=== PATIENT | male | born 1965 | race Caucasian/White ===

== ENCOUNTER 2016-05-29 18:34 | Emergency (ER) | payer MEDICARE, MEDICAID ==
[~2016-05-29] VITALS: Ht 185.4 cm; Wt 81.6 kg
[2016-05-29] MEDS ORDERED: CEPHALEXIN500 MG ORAL (19:42)
[2016-05-29] MEDS ORDERED: PERMETHRIN60 GM TOPIC (19:42)
[2016-05-29] MEDS ORDERED: BACTRIM DS TAB1 EAC1 ORAL (19:42)
[2016-05-29 19:51] VITALS: BP 135/89
[2016-05-29 19:52] VITALS: BP 135/89
--- NOTE | 2016-05-29 22:13 | Emergency Room Report ---
History of Present Illness General Chief Complaint: Medical Clearance Source: Patient Present Illness HPI The pt is a 50 yo M presenting in custody for medical clearance. The pt state that he has bed bug bites and an infection to the R arm. The pt admits to injecting drugs into the R arm. Pt noticed redness to the R arm today. Pt states that he has many lesions of the arms and legs that resemble bed bugs. These lesions are itchy. The pt denies any pain and denies F, chills, CP, SOB, numbness/tingling Allergies: Coded Allergies: No Known Allergies (Unverified , 05/29/16) Patient History Past Medical History: see triage record Pertinent Family History: none Social History: Reports: drug use Reviewed Nursing Documentation: PMH: Agreed, PSxH: Agreed Nursing Documentation-PMH Past Medical History: No History, Except For Hx Hypertension: Yes Review of Systems All Other Systems: negative except mentioned in HPI Physical Exam Vital Signs Date Time Temp Pulse Resp B/P Pulse Ox O2 Delivery O2 Flow Rate FiO2 05/29/16 19:24 97.2 100 16 129/93 99 Room Air Sp02 EP Interpretation: reviewed, normal General Appearance: no apparent distress, alert, GCS 15, non-toxic Head: normocephalic, atraumatic Eyes: bilateral eye PERRL, bilateral eye normal inspection ENT: hearing grossly normal, normal pharynx, no angioedema, normal voice Respiratory: chest non-tender, lungs clear, normal breath sounds, speaking full sentences Cardiovascular #1: regular rate, rhythm, no edema Musculoskeletal: back normal, gait/station normal, normal range of motion Neurologic: alert, oriented x3, responsive, motor strength/tone normal, sensory intact, speech normal Psychiatric: judgement/insight normal, memory normal, mood/affect normal, no suicidal/homicidal ideation Skin: well hydrated, normal turgor, other - There is a 3cm indurated abscess distal to R antecubital fossa Lymphatic: no adenopathy Medical Decision Making PA Attestation Dr. Amezquita is my supervising physician. Patient management was discussed with my supervising physician Diagnostic Impression: Primary Impression: Scabies Additional Impression: Abscess ER Course The pt is a 50 yo M presenting in custody for medical clearance for possible R arm infection and scabies Ddx considered include but not limited to insect bite, contact dermatitis, abscess, eczema, cellulitis PE: vitals WNL. There are multiple burrowing lesions in the web spaces of hands and of arms. There is a 3cm indurated abscess distal to R antecubital fossa. Hot and tender. No opening. No fluctuance. otherwise exam is unremarkable. [facility] for keflex, bactrim, and permethrin. Medically cleared. Last Vital Signs Date Time Temp Pulse Resp B/P Pulse Ox O2 Delivery O2 Flow Rate FiO2 05/29/16 19:52 97.1 98 15 135/89 99 Room Air Status: improved Disposition: D/C TO LAW ENF[employer]CEMENT IN CUST Condition: Improved Scripts Trimethoprim/Sulfamethoxazole 160/800* (BACTRIM DS TABLET*) 1 Each Tablet 1 TAB ORAL TWICE A DAY, #14 TAB Prov: TO ANTON 05/29/16 Cephalexin* (KEFLEX*) 500 Mg Capsule 500 MG ORAL EVERY 6 HOURS, #28 CAP Prov: TO ANTON 05/29/16 Permethrin* (ELIMITE*) 60 Gm Cream..g. 1 APPLIC TOPIC ONCE, #60 GM 0 Refills Apply cream from head to toe; leave on for 8-14 hours before washing off with water; may reapply in 1 week if live mites appear. Prov: TO ANTON 05/29/16 Referrals: NOT CHOSEN IPA/MD,REFERRING (PCP) Departure Forms: Snf Clearance Patient Instructions: Abscess, Pruritus Additional Instructions: I discussed my findings with the patient. All questions and concerns have been answered. Treatment and medication compliance have been addressed. I advised the patient that they need to follow up with PMD in 3-5 days. Return to ED if symptoms worsen, new symptoms arise, or if needed for any reason. Patient verbalized understanding of discharge instructions. TO ANTON May 29, 2016 22:13
== END 2016-05-29 19:53 | disposition home or self-care (01) ==
LOC: EMR 19:30
DX: B86 Scabies (principal); L02.413 Cutaneous abscess of right upper limb; I10 Essential (primary) hypertension
CPT/HCPCS: 99284

== ENCOUNTER 2017-05-02 16:11 | Emergency (ER) | payer MEDICARE, MEDICAID ==
[~2017-05-02] VITALS: Ht 175.3 cm; Wt 77.1 kg
[~2017-05-02 16:11] MED LIST: BACTRIM DS TAB1 EAC1 ORAL; CEPHALEXIN500 MG ORAL; PERMETHRIN60 GM TOPIC
--- NOTE | 2017-05-02 16:22 | Emergency Room Report ---
History of Present Illness General Chief Complaint: Medical Clearance Source: Patient Present Illness HPI 51-year-old male presents to the emergency department for medical clearance for incarceration. Patient has history of septal surgery, chronic low back pain after accident many years ago. He denies pain at this time. He reports history of THC use and states that he is regularly prescribed Adderall for ADD and Xanax for anxiety/PTSD. Denies open wounds/ bleeding. Denies CP, Palpitations, LOC, AMS, dizziness, Changes in Vision, Sensation, paresthesias, or a sudden severe headache. Allergies: Coded Allergies: No Known Allergies (Unverified , 05/29/16) UNABLE TO ASSESS (Unverified , 05/02/17) Patient History Past Medical History: see triage record Past Surgical History: none Pertinent Family History: none Social History: Reports: drug use - THC use Reviewed Nursing Documentation: PMH: Agreed, PSxH: Agreed Nursing Documentation-PMH Past Medical History Deferred: Pt Cognitively Impaired Review of Systems All Other Systems: negative except mentioned in HPI Physical Exam Vital Signs Date Time Temp Pulse Resp B/P (MAP) Pulse Ox O2 Delivery O2 Flow Rate FiO2 05/02/17 16:16 97.9 109 20 136/88 99 Room Air Sp02 EP Interpretation: reviewed, normal General Appearance: no apparent distress, alert, GCS 15, non-toxic Head: normocephalic, atraumatic ENT: hearing grossly normal, normal pharynx, no angioedema, normal voice Neck: full range of motion, no meningismus, no bony tend Respiratory: chest non-tender, lungs clear, normal breath sounds, no respiratory distress, no wheezing, speaking full sentences Cardiovascular #1: regular rate, rhythm, no edema, normal capillary refill, tachycardia - mild tachycardic 109 PBM Cardiovascular #2: 2+ radial (R), 2+ radial (L) Gastrointestinal: non tender, soft Rectal: deferred Musculoskeletal: back normal, gait/station normal, normal range of motion, non- tender Neurologic: alert, oriented x3, responsive, motor strength/tone normal, sensory intact, speech normal Psychiatric: anxious - anxious/ very talkative- suspicious for drug intoxication. Skin: normal color, no rash, warm/dry, well hydrated Medical Decision Making PA Attestation Dr. Soriano is my supervising Physician whom patient management has been discussed with. Diagnostic Impression: Primary Impression: Medical clearance for incarceration ER Course 51-year-old male presents to the emergency department for medical clearance for incarceration. Patient has history of septal surgery, chronic low back pain after accident many years ago. He denies pain at this time. He reports history of THC use and states that he is regularly prescribed Adderall for ADD and Xanax for anxiety/PTSD. Denies open wounds/ bleeding. Denies CP, Palpitations, LOC, AMS, dizziness, Changes in Vision, Sensation, paresthesias, or a sudden severe headache. Ddx considered but are not limited to Head Trauma, NM, ACS, SI/HI, URI, SAH, Fractures, Dislocations, Tazer barbs, Abrasions. Vital signs: are WNL, pt. is afebrile H&PE are most consistent with: normal limited physical examination. ORDERS: none required at this time, the diagnosis is clinical ED INTERVENTIONS: None required at this time. --I do not identify an emergent condition at this time. With current presentation, pt. is stable for close outpatient follow up and conservative treatment. D/w pt. to return promptly to ED with worsening or new symptoms.- Pt. (and or responsible alliance party) verbalizes' understanding and agreement with proposed treatment plan.proposed treatment plan. DISCHARGE: At this time pt. is stable for d/c to law enforcement. Will provide printed patient care instructions, and any necessary prescriptions. Care plan and follow up instructions have been discussed with the patient prior to discharge. Last Vital Signs Date Time Temp Pulse Resp B/P (MAP) Pulse Ox O2 Delivery O2 Flow Rate FiO2 05/02/17 16:16 97.9 109 20 136/88 99 Room Air Disposition: HOME, SELF-CARE Condition: Stable Departure Forms: Penitentiary Clearance Patient Instructions: Medical Screening Exam Additional Instructions: Take any previously prescribed medications as directed. Follow up with a Primary Care Provider in 3-5 days, even if your symptoms have resolved. --Please review list of primary care clinics, if you do not already have a primary care provider Return sooner to ED if new symptoms occur, or current symptoms become worse. - Please note that this Emergency Department Report was dictated using Agendiateleprinter technology software, occasionally this can lead to erroneous entry secondary to interpretation by the dictation equipment. Rayna Kwon May 02, 2017 16:22
[2017-05-02 16:40] VITALS: BP 128/76
== END 2017-05-02 16:40 ==
LOC: EMR 16:23 → MERGE 16:23 → EMR 16:40
DX: Z02.89 Encounter for other administrative examinations (principal); F90.9 Attention-deficit hyperactivity disorder, unspecified type; F41.9 Anxiety disorder, unspecified; F43.10 Post-traumatic stress disorder, unspecified; F12.10 Cannabis abuse, uncomplicated
CPT/HCPCS: 99283